=== PATIENT | female | born 1985 ===

== ENCOUNTER → 2023-04-04 | Outpatient (CLI) | payer MEDICAID | END | disposition home or self-care (01) | LOC: Rad HDHVI 08:03 | PROVIDERS: ATTEND Internal Medicine Cardiovascular Disease | DX: I07.1 Rheumatic tricuspid insufficiency (principal); I10 Essential (primary) hypertension | CPT/HCPCS: 93306 ==

== ENCOUNTER → 2023-04-08 | Outpatient (CLI) | payer MEDICAID ==
[~2023-04-08] VITALS: Ht 160 cm; Wt 49.0 kg
== END | disposition home or self-care (01) ==
LOC: Rad HDHVI 08:02
PROVIDERS: ATTEND Internal Medicine Cardiovascular Disease
DX: I95.9 Hypotension, unspecified (principal); R42 Dizziness and giddiness
CPT/HCPCS: 93017